=== PATIENT | female | born 1955 | race Caucasian/White ===

== ENCOUNTER 2016-11-05 19:36 | Emergency (ER) | payer MEDICAID, OTHER ==
[~2016-11-05] VITALS: Ht 160 cm; Wt 80.5 kg
[~2016-11-05 19:36] MED LIST: HYDR-762 PO; MAGN296S40 PO; NAPR-260 PO; ONDA4TAB8 PO; OXYC-279 PO; TRAM50TA2 PO
[2016-11-05 20:23] VITALS: Ht 160 cm; Wt 80.5 kg
[2016-11-05] MEDS ORDERED: LIDOCAINE/MYLANTA 40 ML BTL PO STA (22:34)
[2016-11-05] MEDS ORDERED: ONDANSETRON 4 MG INJ IV STA (22:34)
[2016-11-05] MEDS ORDERED: FAMOTIDINE 20 MG INJ IV STA (22:34)
[2016-11-05 23:12] LABS: ADD SCAN DIFF NO
[2016-11-05 23:16] LABS: BASOPHILS % 0.3 % (0.0-2.0); EOSINOPHILS # 0.2 10^3/ul (0.0-0.5); EOSINOPHILS % 1.8 % (0.0-7.0); HEMATOCRIT 40.7 % (37.0-47.0); HEMOGLOBIN 13.7 g/dl (12.0-16.0); LYMPHOCYTES # 4.1 10^3/ul (0.8-2.9); LYMPHOCYTES % 46.3 % (15.0-51.0); MEAN CORPUSCULAR HEMOGLOBIN 30.2 pg (29.0-33.0); MEAN CORPUSCULAR HGB CONC 33.7 g/dl (32.0-37.0); MEAN CORPUSCULAR VOLUME 89.8 fl (82.0-101.0); MEAN PLATELET VOLUME 9.6 fl (7.4-10.4); MONOCYTE # 0.6 10^3/ul (0.3-0.9); MONOCYTES % 7.1 % (0.0-11.0); NEUTROPHIL # 3.9 10^3/ul (1.6-7.5); NEUTROPHILS % 44.3 % (39.0-77.0); PLATELET COUNT 315 10^3/UL (140-415); RED BLOOD COUNT 4.53 10^6/ul (4.20-5.40); RED CELL DISTRIBUTION WIDTH 12.5 % (11.5-14.5); WHITE BLOOD COUNT 8.8 10^3/ul (4.8-10.8)
--- NOTE | 2016-11-05 23:23 | RADRPT ---
PROCEDURE: XR Chest. CLINICAL INDICATION: Abdominal pain TECHNIQUE: AP Portable chest. COMPARISON: No pertinent prior examinations were submitted for comparison. FINDINGS: The cardiomediastinal silhouette is normal. The lungs are clear. The osseous structures are unrema rkable. IMPRESSION: No acute findings. RPTAT: HIKT .Tony Saunders MD, MD Date Time Electronically viewed and signed by .Tony Saunders MD, MD on 11/05/2016 23:22 .T/
[2016-11-05 23:28] LABS: ADD UMIC YES; URINE BILIRUBIN (Dip) NEGATIVE (NEGATIVE); URINE BLOOD (Dip) NEGATIVE (NEGATIVE); URINE COLOR LT. YELLOW (YELLOW); URINE GLUCOSE (Dip) NEGATIVE (NEGATIVE); URINE KETONES (Dip) NEGATIVE (NEGATIVE); URINE LEUKOCYTE ESTERASE (Dip) TRACE (NEGATIVE); URINE NITRITE (Dip) NEGATIVE (NEGATIVE); URINE TOTAL PROTEIN (Dip) NEGATIVE (NEGATIVE); URINE UROBILINOGEN (Dip) 0.2 E.U./dL (0.1-1.0)
[2016-11-05 23:31] LABS: ALANINE AMINOTRANSFERASE 48 IU/L (13-69); ALBUMIN 4.7 g/dl (3.3-4.9); ALBUMIN/GLOBULIN RATIO 1.38; ALKALINE PHOSPHATASE 114 IU/L (42-121); ANION GAP 13 (8-16); ASPARTATE AMINO TRANSFERASE 29 IU/L (15-46); BILIRUBIN,INDIRECT 0.6 mg/dl (0-1.1); BILIRUBIN,TOTAL 0.6 mg/dl (0.2-1.3); BLOOD UREA NITROGEN 13 mg/dl (7-20); CALCIUM 9.3 mg/dl (8.4-10.2); CARBON DIOXIDE 24 mmol/L (21-31); CHLORIDE 109 mmol/L (97-110); CREATININE 0.52 mg/dl (0.44-1.00); GLUCOSE 93 mg/dl (70-220); POTASSIUM 4.2 mmol/L (3.5-5.1); SODIUM 142 mmol/L (135-144); TOTAL PROTEIN 8.1 g/dl (6.1-8.1)
[2016-11-05 23:44] LABS: SQUAMOUS EPITHELIAL CELL,UR RARE
[2016-11-05 23:44] LABS: TROPONIN-I < 0.012 ng/ml (0.00-0.12)
[2016-11-06] MEDS ORDERED: METOCLOPRAMIDE 10 MG INJ IV ONE
--- NOTE | 2016-11-06 00:23 | ERD ---
ER Documentation Chief Complaint Date/Time DATE: 11/06/16 TIME: 00:21 Chief Complaint ONGOING EPIGASTRIC PAIN STARTED THIS AM AFTER FOOD CONSUMPTION HPI This is a 61-year-old female presents to the emergency room for evaluation of abdominal pain. The patient localizes the abdominal pain to the midportion of the abdomen states that it started after she ate food. Patient states that she periodically gets abdominal pain after eating certain foods. She states that the abdominal pain is not associated with any nausea, vomiting or diarrhea. She denies any radiation of the pain and came to the ER today for evaluation. ROS All systems reviewed and are negative except as per history of present illness. Medications Home Meds Active Scripts Tramadol HCl (Tramadol HCl) 50 Mg Tablet, 50 MG PO Q4 Y for PAIN, #20 TAB Prov:RICHI MCINTOSH PA-C 05/23/16 Naproxen* (Naprosyn*) 500 Mg Tablet, 500 MG PO BID Y for PAIN AND/OR INFLAMMATION, #30 TAB Prov:RICHI MCINTOSH PA-C 05/23/16 Naproxen* (Naprosyn*) 500 Mg Tablet, 500 MG PO BID Y for PAIN AND/OR INFLAMMATION, #30 TAB Prov:JACLYN RUFFIN PA-C 05/09/16 Naproxen* (Naprosyn*) 500 Mg Tablet, 500 MG PO BID, #30 TAB Prov:CHAI KIDD PA-C 01/21/16 Oxycodone HCl/Acetaminophen (Percocet 5-325 mg Tablet) 1 Each Tablet, 1 EACH PO Q6, #10 TAB Prov:CHAI KIDD PA-C 01/21/16 Magnesium Citrate* (Magnesium Citrate*) 296 Ml Solution, 296 ML PO ONCE, #1 BOTTLE Prov:MORRIS NARVAEZ DO 03/29/15 Ondansetron Hcl* (Zofran*) 4 Mg Tablet, 4 MG PO Q8H Y for NAUSEA AND/OR VOMITING , #20 TAB Prov:CYNDEE LANGFORD 03/01/15 Hydrocodone Bit-Acetaminophen* ([place]*) 10-325 Mg Tablet, 1 TAB PO Q6 Y for PAIN , #20 TAB Prov:CYNDEE LANGFORD 03/01/15 Allergies Allergies: Coded Allergies: hydrocodone (Verified Allergy, Intermediate, Itching, 04/11/15) Sulfa (Sulfonamide Antibiotics) (Verified Allergy, Unknown, RASH, 04/11/15) PMhx/Soc Anesthesia Reaction: No Hx Neurological Disorder: No Hx Respiratory Disorders: No Hx Cardiac Disorders: No Hx Psychiatric Problems: No Hx Miscellaneous Medical Probl: Yes (r. ovarian cyst) Hx Alcohol Use: No Hx Substance Use: No Hx Tobacco Use: No Smoking Status: Never smoker Physical Exam Vitals Vital Signs Date Time Temp Pulse Resp B/P Pulse Ox O2 Delivery O2 Flow Rate FiO2 11/05/16 20:23 98.6 72 17 139/74 97 Physical Exam INITIAL VITAL SIGNS: Reviewed by me GENERAL: The patient is well developed and appropriate for usual state of health in no apparent distress HEENT: Pupils equal, round, and reactive to light. EOMI. There is no scleral icterus. NECK: C-spine is soft and supple, there is no meningismus. There is no cervical lymphadenopathy. LUNGS: Clear to auscultation bilaterally. There are no rales, wheezes or rhonchi. HEART: Regular rate and rhythm, no murmurs, clicks, rubs or gallops. ABDOMEN: Epigastric tenderness to palpation, otherwise soft, non-tender, non- distended. There are bowel sounds in all four quadrants. No rebound or guarding. EXTREMITIES: There is no peripheral cyanosis or edema. No focal swelling or erythema. NEUROLOGICAL: The patient moves all four extremities with 5/5 strength. Cranial nerves II - XII are intact. Normal gait. Alert and oriented SKIN: There is no apparent rash or petechiae. HEME/LYMPHATIC: There is no evidence of excessive bruising or lymphedema. PSYCHIATRIC: The patient does not appear anxious or depressed. Result Diagram: 11/05/16225711/05/162257 Results 24 hrs Laboratory Tests Test 11/05/16 22:41 11/05/16 22:58 Urine Color LT. YELLOW Urine Clarity SLIGHTLY CLOUDY Urine pH 7.5 Urine Specific [place] 1.015 Urine Ketones NEGATIVE Urine Nitrite NEGATIVE Urine Bilirubin NEGATIVE Urine Urobilinogen 0.2 E.U./dL Urine Leukocyte Esterase TRACE Urine Microscopic RBC /HPF Urine Microscopic WBC 0-2/HPF Urine Squamous Epithelial Cells RARE Urine Amorphous Phosphates MANY Urine Hemoglobin NEGATIVE Urine Glucose NEGATIVE% Urine Total Protein NEGATIVE White Blood Count 8.810^3/ul Red Blood Count 4.5310^6/ul Hemoglobin 13.7g/dl Hematocrit 40.7% Mean Corpuscular Volume 89.8fl Mean Corpuscular Hemoglobin 30.2pg Mean Corpuscular Hemoglobin Concent 33.7g/dl Red Cell Distribution Width 12.5% Platelet Count 27984^3/UL Mean Platelet Volume 9.6fl Neutrophils % 44.3% Lymphocytes % 46.3% Monocytes % 7.1% Eosinophils % 1.8% Basophils % 0.3% Nucleated Red Blood Cells % 0.0/100WBC Neutrophils # 3.910^3/ul Lymphocytes # 4.110^3/ul Monocytes # 0.610^3/ul Eosinophils # 0.210^3/ul Basophils # 0.010^3/ul Nucleated Red Blood Cells # 0.010^3/ul Sodium Level 142mmol/L Potassium Level 4.2mmol/L Chloride Level 109mmol/L Carbon Dioxide Level 24mmol/L Anion Gap 13 Blood Urea Nitrogen 13mg/dl Creatinine 0.52mg/dl Glucose Level 93mg/dl Calcium Level 9.3mg/dl Total Bilirubin 0.6mg/dl Direct Bilirubin 0.00mg/dl Indirect Bilirubin 0.6mg/dl Aspartate Amino Transf (AST/SGOT) 29IU/L Alanine Aminotransferase (ALT/SGPT) 48IU/L Alkaline Phosphatase 114IU/L Troponin I < 0.012ng/ml Total Protein 8.1g/dl Albumin 4.7g/dl Globulin 3.40g/dl Albumin/Globulin Ratio 1.38 Lipase 162U/L Current Medications Medications (Trade) Dose Ordered Sig/Dm Route PRN Reason Start Time Stop Time Status Last Admin Dose Admin Ondansetron HCl (Zofran Inj) 4 mg ONCE STAT IV 11/05/16 22:34 11/05/16 22:35 DC 11/05/16 23:11 Famotidine (Pepcid Iv) 20 mg ONCE STAT IV 11/05/16 22:34 11/05/16 22:35 DC 11/05/16 23:11 Miscellaneous Medication (Gi Cocktail (2)) 40 ml ONCE STAT PO 11/05/16 22:34 11/05/16 22:36 DC 11/05/16 23:11 Metoclopramide HCl (Reglan) 5 mg ONCE ONCE IV 11/06/16 00:00 11/06/16 00:01 DC Al Hydrox/Mg Hydrox/Simethicone (Mag-Al Plus) 60 ml ONCE ONCE PO 11/06/16 00:30 11/06/16 00:31 Ranitidine HCl (Zantac) 150 mg ONCE ONCE PO 11/06/16 00:30 11/06/16 00:31 Procedures/MDM Chest X-ray 1V Interpreted by me: Soft Tissue: No acute abnormalities Bones: No acute abnormalities Mediastinum/Cardiac Silhouette/Lungs: [No acute abnormalities] EKG: Rate/Rhythm: [Normal Sinus Rhythm] QRS, ST, T-waves: [No changes consistent w/ acute ischemia] Impression: [No evidence of ischemia or arrhythmia] This 61-year-old female presents to the ER for evaluation of abdominal pain. When I evaluated this patient she did state that she has had abdominal pain after eating food. The patient did have epigastric tenderness to palpation on my examination. Patient was given GI cocktail, Zofran, and Pepcid. Pulmonary evaluation she states she is feeling better. The patient does state that this occurs after eating food and likely is suffering from gastritis. This patient will be discharged at this time with a prescription for Zantac and instructions to stay away from spicy foods, caffeine. She does state that she drinks coffee every morning and has been eating spicy food. Differential diagnoses entertained was broad with potential high acuity. Patient has been evaluated for appendicitis, cholecystitis, and other high risk medical and surgical causes of abdominal pain. Ultimately the patient's evaluation is nondiagnostic. Based on the patient's lack of risk factors, as well as the patient's clinical, laboratory, and imaging data, the patient appears to be low risk for these high risk causes of abdominal pain. I advised her to return immediately to the ER if she develops any worsening symptoms and she verbalized understanding Departure Diagnosis: Primary Impression: Abdominal pain Additional Impression: Acute gastritis Condition: Stable ANNIE MCCORMICK DO Nov 06, 2016 00:23
[2016-11-06] MEDS ORDERED: RANI150T9 PO (00:28)
[2016-11-06] MEDS ORDERED: AL HYDROX/MG HYDROX/SIMETH 30 ML CUP PO ONE (00:30)
[2016-11-06] MEDS ORDERED: RANITIDINE 150 MG TAB PO ONE (00:30)
[2016-11-06 01:37] VITALS: BP 137/84; PULSE 59; RESP 20
== END 2016-11-06 01:40 | disposition home or self-care (01) ==
LOC: E/R 19:36
DX: R10.13 Epigastric pain (principal); K29.00 Acute gastritis without bleeding
CPT/HCPCS: 36415; 71010; 80053; 81001; 83690; 84484; 85025; 93005; 96374; 96375; J2405; J2765; Z7502; Z7610